=== PATIENT | female | born 1950 | race Caucasian/White ===

== ENCOUNTER 2017-04-10 11:26 | Outpatient (CLI) | payer MEDICARE ==
[2017-04-10 12:09] LABS: ALBUMIN/GLOBULIN RATIO 1.5 (1.0-2.2); BILIRUBIN,TOTAL 0.9 mg/dL (0.2-1.0); CALCIUM 9.1 mg/dL (8.5-10.3); CREATININE 0.7 mg/dL (0.4-1.0); POTASSIUM 3.9 mmol/L (3.5-5.0); TOTAL PROTEIN 7.1 g/dL (6.7-8.2)
== END 2017-04-10 11:27 | disposition home or self-care (01) ==
LOC: LAB 11:26
PROVIDERS: ATTEND Urology
DX: Z85.528 Personal history of other malignant neoplasm of kidney (principal); N39.0 Urinary tract infection, site not specified
CPT/HCPCS: 36415; 80053

== ENCOUNTER 2017-05-19 07:38 | Outpatient (CLI) | payer MEDICARE ==
--- NOTE | 2017-05-20 16:50 | Mammography Report ---
DIGITAL SCREENING MAMMOGRAM: 05/19/2017 CLINICAL INDICATION: A 67-year-old with history of benign biopsy, for screening. COMPARISON: 12/2014, 11/2013, 09/2012, 04/2011, 04/2010. TECHNIQUE: Routine CC and MLO projections were obtained of the breasts. FINDINGS: The breasts again demonstrate scattered fibroglandular densities bilaterally. Punctate, ty pically benign calcifications are present. No suspicious masses, clustered microcalcifications, or re gions of architectural distortion are identified. IMPRESSION: BENIGN FINDINGS. RECOMMENDATION: ROUTINE ANNUAL SCREENING UNLESS OTHERWISE CLINICALLY INDICATED. BIRADS CATEGORY 2-BENIGN FINDINGS. STANDARD QUALIFYING STATEMENTS 1. This examination was reviewed with the aid of Computer-Aided Detection (CAD). 2. A negative or benign imaging report should not delay biopsy if clinically suspicious findings are present. Consider surgical consultation if warranted. More than 5% of cancers are not identified by i maging. 3. Dense breasts may obscure an underlying neoplasm. JOB #: [id number] EXT JOB #:[id number]
== END 2017-05-19 07:39 | disposition home or self-care (01) ==
LOC: DI 07:38
PROVIDERS: ATTEND Family Medicine
DX: Z12.31 Encounter for screening mammogram for malignant neoplasm of breast (principal)
CPT/HCPCS: 77067

== ENCOUNTER 2017-12-10 08:00 | Outpatient (CLI) | payer MEDICARE ==
[2017-12-10 19:14] LABS: BASOPHILS % (AUTO) 0.5 %; EOSINOPHILS # (AUTO) 0.2 10^3/uL (0.0-0.7); EOSINOPHILS % (AUTO) 3.7 %; HGB - HEMOGLOBIN 11.5 g/dL (12.0-16.0); LYMPHOCYTES # (AUTO) 2.1 10^3/uL (1.5-3.5); LYMPHOCYTES % (AUTO) 32.6 %; MEAN CORPUSCULAR VOLUME 84.8 fL (81.0-99.0); MONOCYTES # (AUTO) 0.3 10^3/uL (0.0-1.0); MONOCYTES % (AUTO) 5.4 %; NEUTROPHILS # (AUTO) 3.7 10^3/uL (1.5-6.6); NEUTROPHILS % (AUTO) 57.8 %; PLT - PLATELET COUNT 283 10^3/uL (130-450); RED CELL DISTRIBUTION WIDTH 13.4 % (12.0-15.0); WHITE BLOOD COUNT 6.5 x10^3/uL (4.8-10.8)
[2017-12-10 19:22] LABS: % IRON SATURATION 18 % (20-50); ALBUMIN 3.9 g/dL (3.2-5.5); ALBUMIN/GLOBULIN RATIO 1.4 (1.0-2.2); ALKALINE PHOSPHATASE 50 IU/L (42-121); ALT ALANINE AMINOTRANSFERASE 13 IU/L (10-60); AST ASPARTATE AMINOTRANSFERASE 19 IU/L (10-42); BILIRUBIN,TOTAL 0.6 mg/dL (0.2-1.0); BUN - BLOOD UREA NITROGEN 16 mg/dL (6-20); CARBON DIOXIDE - CO2 29 mmol/L (21-32); CHLORIDE 106 mmol/L (101-111); CREATININE 0.7 mg/dL (0.4-1.0); GFR - MDRD 83 (>89); GLUCOSE 84 mg/dL (70-100); IRON 45 ug/dL (28-170); SODIUM 140 mmol/L (135-145); TOTAL IRON BINDING CAPACITY 248 ug/dL (250-450); TOTAL PROTEIN 6.6 g/dL (6.7-8.2); TRANSFERRIN 177 mg/dL (192-382)
[2017-12-10 19:29] LABS: THYROID STIMULATING HORMONE 2.35 uIU/mL (0.34-5.60)
[2017-12-10 19:35] LABS: FERRITIN 170.1 ng/mL (11.0-306.8)
== END 2017-12-10 08:01 | disposition home or self-care (01) ==
LOC: LAB.WCP 08:00
PROVIDERS: ATTEND Family Medicine
DX: L62 Nail disorders in diseases classified elsewhere (principal); L65.9 Nonscarring hair loss, unspecified; R42 Dizziness and giddiness; C64.9 Malignant neoplasm of unspecified kidney, except renal pelvis
CPT/HCPCS: 36415; 80053; 82607; 82728; 82746; 83540; 84443; 84466; 85025

== ENCOUNTER 2018-01-21 09:43 | Day surgery (SDC) | payer MEDICARE ==
[2018-01-21] MEDS ORDERED: LACTATED RINGERS 1,000 ML IV ONE ×2 (10:04→12:15)
[2018-01-21] MEDS ORDERED: fentaNYL 250 MCG/5 ML VIAL IVP ONE (10:58)
[2018-01-21] MEDS ORDERED: MIDAZOLAM 2 MG/2 ML VIAL IVP ONE (10:58)
[2018-01-21] MEDS ORDERED: LIDO GARGLE 30 ML BOTTLE ONE (10:59)
[2018-01-21] MEDS ORDERED: ONDANSETRON 4 MG/2 ML VIAL ONE (16:17)
[2018-01-21 16:32] VITALS: BP 113/70
--- NOTE | 2018-01-21 17:55 | XRAY Report ---
DOUBLE CONTRAST BARIUM ENEMA: 01/21/2018 HISTORY: Unsuccessful colonoscopy. FINDINGS: The preliminary advocacy director film shows multiple surgical clips in the abdomen. Bowel gas pattern is nonspecific. Minor degenerative change in the spine. Double contrast barium flows freely in a retrograde fashion from rectum to cecum. The colon is markedly redundant. No evidence of obstruction to retrograde flow or annular constricting lesion is identified. Unfortunately, due to the multiple overlapping colonic loops, it is impossible to clear the colon of small persistent intraluminal abnormalities. No large lesions are identified. Fluoroscopy Time: 5 minutes 26 seconds Number of Images: 15 IMPRESSION: 1. MARKEDLY REDUNDANT COLON. 2. NO OBSTRUCTION TO RETROGRADE FLOW OR ANNULAR CONSTRICTING LESION. 3. LIMITED EVALUATION OF THE COLON LUMEN DUE TO MULTIPLE OVERLAPPING LOOPS. TD: 01/21/2018 16:37 ANA
== END 2018-01-21 09:44 | disposition home or self-care (01) ==
LOC: SDS 09:43
PROVIDERS: ATTEND Internal Medicine Gastroenterology
PROC: 0DJD8ZZ Inspection of Lower Intestinal Tract, Via Natural or Artificial Opening Endoscopic (ICD-10-PCS; principal; 2018-01-21 10:45)
PROC: 0DB68ZX Excision of Stomach, Via Natural or Artificial Opening Endoscopic, Diagnostic (ICD-10-PCS; 2018-01-21 10:45)
DX: D50.9 Iron deficiency anemia, unspecified (principal); K57.30 Diverticulosis of large intestine without perforation or abscess without bleeding; D13.1 Benign neoplasm of stomach; Z85.528 Personal history of other malignant neoplasm of kidney
CPT/HCPCS: 43239; 45378; A9270; G0120; J7120; 88305

== ENCOUNTER 2018-03-15 11:00 | Outpatient (CLI) | payer MEDICARE ==
[2018-03-15 11:36] LABS: BASOPHILS # (AUTO) 0.1 10^3/uL (0.0-0.1); BASOPHILS % (AUTO) 1.2 %; EOSINOPHILS # (AUTO) 0.3 10^3/uL (0.0-0.7); EOSINOPHILS % (AUTO) 4.8 %; HGB - HEMOGLOBIN 13.1 g/dL (12.0-16.0); LYMPHOCYTES # (AUTO) 1.9 10^3/uL (1.5-3.5); LYMPHOCYTES % (AUTO) 32.6 %; MEAN CORPUSCULAR HEMOGLOBIN 28.9 pg (27.0-31.0); MEAN CORPUSCULAR HGB CONC 33.5 g/dL (32.0-36.0); MEAN CORPUSCULAR VOLUME 86.1 fL (81.0-99.0); MEAN PLATELET VOLUME 8.4 fL (7.9-10.8); MONOCYTES # (AUTO) 0.4 10^3/uL (0.0-1.0); MONOCYTES % (AUTO) 7.1 %; NEUTROPHILS # (AUTO) 3.2 10^3/uL (1.5-6.6); NEUTROPHILS % (AUTO) 54.3 %; PLT - PLATELET COUNT 254 10^3/uL (130-450); RED BLOOD COUNT 4.54 10^6/uL (4.20-5.40); RED CELL DISTRIBUTION WIDTH 13.5 % (12.0-15.0); WHITE BLOOD COUNT 5.8 x10^3/uL (4.8-10.8)
[2018-03-15 11:48] LABS: ALBUMIN 4.2 g/dL (3.2-5.5); ALBUMIN/GLOBULIN RATIO 1.5 (1.0-2.2); CALCIUM 9.6 mg/dL (8.5-10.3); CREATININE 0.6 mg/dL (0.4-1.0)
== END 2018-03-15 11:01 | disposition home or self-care (01) ==
LOC: LAB 11:00
PROVIDERS: ATTEND Internal Medicine Gastroenterology
DX: D50.9 Iron deficiency anemia, unspecified (principal); Z85.528 Personal history of other malignant neoplasm of kidney
CPT/HCPCS: 36415; 80053; 85025

== ENCOUNTER 2018-03-17 06:13 | Outpatient (CLI) | payer MEDICARE ==
[2018-03-17] MEDS ORDERED: IOPAMIDOL-300 50 ML VIAL ONE (06:35)
[2018-03-17] MEDS ORDERED: IOPAMIDOL-300 100 ML VIAL ONE (06:35)
[2018-03-17] MEDS ORDERED: IOPAMIDOL-300 50 ML VIAL PO ONE (07:36)
[2018-03-17] MEDS ORDERED: IOPAMIDOL-300 100 ML VIAL IVP ONE (07:36)
--- NOTE | 2018-03-17 09:22 | CT Report ---
Procedure Date: 03/17/2018 Accession Number: [id number] / [id number] Procedure: CT - Abdomen/Pelvis W/ CPT Code: FULL RESULT: EXAM: Abdomen/Pelvis W/ DATE: 03/17/2018 7:34 AM CLINICAL HISTORY: IRON DEFICIENCY ANEMIA, HISTORY OF RENAL CARCINOMA COMPARISON: None. TECHNIQUE: Routine helical CT imaging was performed through the abdomen and pelvis. IV contrast: 100 mL of Isovue 300. Enteric contrast: Yes. Reconstructions: Coronal and sagittal. In accordance with CT protocol optimization, one or more of the following dose reduction techniques were utilized for this exam: automated exposure control, adjustment of mA and/or KV based on patient size, or use of iterative reconstructive technique. FINDINGS: Lung Bases: Unremarkable aside from dependent changes at the right lung base. Liver: A 1.2 cm hypodense lesion in the caudate lobe is incompletely characterized on this study Gallbladder/Bile Ducts: Unremarkable. Spleen: Normal. Pancreas: Normal. Adrenal Glands: Normal. Left kidney: Postsurgical changes are seen near the renal hilum including surgical clips. Postsurgical changes including enhancement and calcification are seen along the anterior cortical outline of the left renal midpole. Exclusion of residual/recurrent disease at this site is not possible without comparison to a prior study. There is no overt nearby extrarenal mass or exophytic suspicious mass component. Right kidney: Right kidney is unremarkable. Peritoneal Cavity/Bowel: Normal. No free fluid, free air or adenopathy. No masses or acute inflammatory process. The appendix is well visualized and normal. Pelvic Organs: Normal. The bladder and visualized pelvic organs are within normal limits. Vasculature: No aneurysms or other significant abnormality. Bones: No aggressive osseous lesions. Other: None. IMPRESSION: Postsurgical changes in the left kidney. Without comparison to prior imaging, assessment of residual/recurrent disease at the resection site is not possible. Within these limitations, no overt metastatic disease and no exophytic mass lesion to suggest overt recurrence is identified. Incomplete characterization of 1.2 cm hypodense hepatic lesion. Dedicated MRI liver mass protocol with and without contrast is recommended. RADIA
== END 2018-03-17 06:14 | disposition home or self-care (01) ==
LOC: DI 06:13
PROVIDERS: ATTEND Internal Medicine Gastroenterology
DX: D50.9 Iron deficiency anemia, unspecified (principal); Z85.528 Personal history of other malignant neoplasm of kidney
CPT/HCPCS: 74177; Q9967

== ENCOUNTER 2018-04-03 13:39 | Outpatient (CLI) | payer MEDICARE ==
[2018-04-03] MEDS ORDERED: GADOBUTROL 7.5 MMOL/7.5 ML VIAL ONE (13:51)
--- NOTE | 2018-04-04 01:16 | MRI Report ---
Procedure Date: 04/03/2018 Accession Number: [id number] / [id number] Procedure: MRI - Abdomen W/WO CPT Code: FULL RESULT: EXAM: MR ABDOMEN WITH AND WITHOUT CONTRAST (MR LIVER) EXAM DATE: 04/03/2018 03:03 PM. CLINICAL HISTORY: History of renal cancer, indeterminate hepatic cyst. COMPARISON: ABDOMEN/PELVIS W/ 03/17/2018 7:28 AM. TECHNIQUE: Multiplanar breath-hold T1, T2, and DWI sequences obtained through the abdomen on an MR scanner. Images obtained before and after administration of 7.5 mL of Gadavist intravenous contrast. Multiphase postcontrast images obtained of the liver and abdomen. FINDINGS: Lung Bases: Unremarkable. Liver: There is a 1.3 x 1.1 cm cyst in the caudate lobe. The liver otherwise demonstrates homogeneous signal and enhancement with no suspicious lesions. There is no significant fatty infiltration. Gallbladder: The gallbladder is partially distended and appears normal with no wall thickening or stone. Pancreas: The pancreas appears normal with no mass or ductal dilatation. Spleen: The spleen appears normal. Kidneys and Adrenals: The kidneys appear normal with no mass or hydronephrosis. There are no cysts in the kidneys. The adrenals appear normal. Bowel: The small bowel and colon appear normal with no inflammation or obstruction. Retroperitoneum: The retroperitoneal structures appear normal with no mass or lymphadenopathy. IMPRESSION: 1. No evidence of renal mass. 2. Simple, 1.3 cm caudate lobe hepatic cyst. RADIA
== END 2018-04-03 13:40 | disposition home or self-care (01) ==
LOC: DI 13:39
PROVIDERS: ATTEND Family Medicine
DX: K76.89 Other specified diseases of liver (principal)
CPT/HCPCS: 74183; A9585

== ENCOUNTER 2019-03-10 06:58 | Day surgery (SDC) | payer MEDICARE ==
[~2019-03-10 06:58] MED LIST: CYCLOPENTOLATE 1% OPHTH DROPS 2 ML ONE; KETOROLAC 0.45% OPHTH DROPS ONE; PHENYLEPHRINE 2.5% OPHTH 2 ML DROPS ONE; PROPARACAINE 0.5% OPHTH DROPS 15 ML ONE
[2019-03-10] MEDS ORDERED: LACTATED RINGERS 500 ML IV ONE (07:02)
[2019-03-10] MEDS ORDERED: TRIAMCIN/MOXIFLOX OPHTHALMIC 0.6 ML VIAL IO ONE ×2 (07:05→08:15)
[2019-03-10] MEDS ORDERED: EPINEPHrine 1 MG/ML AMP ONE (07:05)
[2019-03-10] MEDS ORDERED: TIMOLOL 0.5% OPHTH DROPS ONE (07:05)
[2019-03-10] MEDS ORDERED: BRIMONIDINE 0.2% OPHTH DROPS 5 ML ONE (07:05)
[2019-03-10] MEDS ORDERED: BSS/LIDOCAINE/EPINEPHRINE 1 ML SYRINGE ONE (07:06)
[2019-03-10] MEDS ORDERED: VANCOMYCIN OPHTHALMI 8MG/0.8ML 8 MG/0.8 ML SYRINGE IO ONE ×2 (07:06→08:15)
[2019-03-10] MEDS ORDERED: PROPARACAINE 0.5% OPHTH DROPS 15 ML LEFTEYE ONE ×2 (07:15→08:17)
[2019-03-10] MEDS ORDERED: CYCLOPENTOLATE 1% OPHTH DROPS 2 ML LEFTEYE ONE (07:15)
[2019-03-10] MEDS ORDERED: PHENYLEPHRINE 2.5% OPHTH 2 ML DROPS LEFTEYE ONE (07:15)
[2019-03-10] MEDS ORDERED: KETOROLAC 0.45% OPHTH DROPS LEFTEYE ONE (07:15)
--- NOTE | 2019-03-10 07:41 | ANESTHESIA ---
Pre-Anesthesia VS, & Labs - Diagnosis Senile combined cataract left eye - Procedure cataract extraction with IOL left eye Vital Signs: Temp Pulse Resp BP Pulse Ox 36.4 C L 67 16 124/67 98 03/10/19 07:05 03/10/19 07:05 03/10/19 07:05 03/10/19 07:05 03/10/19 07:05 Height 5 ft 2 in Weight (kg) 64 kg Body Mass Index 28.3 - NPO >8 hours - Is Patient ?: No Home Medications and Allergies magnesium, iron, vitamin C, biotin Allergies/Adverse Reactions: Allergies Allergy/AdvReac Type Severity Reaction Status Date / Time amoxicillin Allergy Rash Verified 01/21/18 10:14 Sulfa (Sulfonamide Allergy Rash Verified 01/21/18 10:14 Antibiotics) Anes History & Medical History - Anesthetic History Anesthesia Complications: reports: Post-Operative Nausea/Vomiting - Medical History Cardiovascular: reports: None, Murmur Pulmonary: reports: None Gastrointestinal: reports: None Urinary: reports: Chronic bladder infection, Other (History of kidney cancer) Neuro: reports: None Musculoskeletal: reports: Osteoarthritis Endocrine/Autoimmune: reports: None Blood Disorders: reports: None Skin: reports: None Smoking Status: Former smoker Psychosocial: reports: No issues indicated - Surgical History General: Colonoscopy Gynecologic: Hysterectomy, Oophrectomy Other Past Surgical History: Patient had kidney tumor removed. Kidney is still intact Exam General: Alert, Oriented x3, Cooperative, No acute distress Dental: WNL (prominent incisors) Mouth Openin Fingerbreadth Neck Mobility: Normal Mallampati classification: II Thyromental Distance: greater than 6 cm Respiratory: Lungs clear, Normal breath sounds, No respiratory distress, No accessory muscle use Cardiovascular: Regular rate, Normal S1, Normal S2, No murmurs Mental/Cognitive Status: Alert/Oriented X3, Normal for patient Plan Anesthesia Type: MAC Consent for Procedure(s) Verified and Reviewed: Yes Code Status: Attempt Resuscitation ASA classification: 2-Mild systemic disease Is this case an emergency?: No
[2019-03-10] MEDS ORDERED: TIMOLOL 0.5% OPHTH DROPS OPTH ONE (08:16)
[2019-03-10] MEDS ORDERED: BRIMONIDINE 0.2% OPHTH DROPS 5 ML OPTH ONE (08:16)
[2019-03-10] MEDS ORDERED: BSS/LIDOCAINE/EPINEPHRINE 1 ML SYRINGE IO ONE (08:16)
[2019-03-10] MEDS ORDERED: EPINEPHrine 1 MG/ML AMP IR ONE (08:16)
[2019-03-10] MEDS ORDERED: CHONDR SULF/HYALURONATE SYRINGE IO ONE (08:16)
--- NOTE | 2019-03-10 08:45 | OPERATIVE REPORT ---
DATE OF SERVICE: 03/10/2019 Physician: Richie Yang MD PREOPERATIVE DIAGNOSIS: Visually significant cataract, left eye. This was her first cataract surger y. POSTOPERATIVE DIAGNOSIS: Visually significant cataract, left eye. This was her first cataract surge ry. DESCRIPTION OF PROCEDURE: Phacoemulsification with posterior chamber intraocular lens implant, left eye. SURGEON: Richie Yang MD ANESTHESIA: Monitored anesthesia care. COMPLICATIONS: None. OPERATIVE INDICATIONS: This is a 68-year-old woman with progressive vision loss in the left eye due to 2+ nuclear sclerotic and 3+ cortical cataract. Best corrected visual acuity was 20/20 with glare to 20/125 in the left eye. Indications for surgery are overall decrease in vision, difficulty drivin g in low light or at night, and difficulty with glare or bright lights in any situation. She was con sented at length concerning risks and benefits of cataract surgery, after which she expressed a arabella e to proceed with surgery. OPERATIVE PROCEDURE: The patient was taken into OR #3 and placed under monitored anesthesia care. A surgical timeout was conducted confirming correct patient, correct procedure, and correct surgical s ite. She was given topical anesthesia, and prepped and draped in the usual sterile fashion. The eye was entered at the 6 and 3 o'clock positions. Intracameral Shugarcaine was injected into the anteri or chamber, followed by Viscoat. A continuous-tear curvilinear capsulorrhexis was performed. The nu cleus was hydrodissected and phacoemulsified. The cortex was evacuated using automated infusion and aspiration. Provisc was injected in the capsular bag, and a 21.0 diopter intraocular lens inserted i n the bag. Approximately 0.8 mL of a mixture of triamcinolone, moxifloxacin and vancomycin was injec sam subconjunctivally in the superior quadrant for infection and inflammation prophylaxis. I and A, was used to evacuate the viscoelastic materials. The eye was inflated to physiologic pressure using balanced salt solution and found to be watertight. Patient was taken from the operating room in good condition and given postoperative instructions active. TD: 03/10/2019 08:29
[2019-03-10 09:07] VITALS: BP 106/54
== END 2019-03-10 06:59 | disposition home or self-care (01) ==
LOC: SDS 06:58
PROVIDERS: ATTEND Ophthalmology
PROC: 08RK3JZ Replacement of Left Lens with Synthetic Substitute, Percutaneous Approach (ICD-10-PCS; principal; 2019-03-10 08:00)
DX: H25.812 Combined forms of age-related cataract, left eye (principal); Z87.891 Personal history of nicotine dependence
CPT/HCPCS: 66984; A9270; J3490; V2632

== ENCOUNTER 2019-04-07 07:15 | Day surgery (SDC) | payer MEDICARE ==
[2019-04-07] MEDS ORDERED: LACTATED RINGERS 500 ML IV ONE (07:20)
[2019-04-07] MEDS ORDERED: BSS/LIDOCAINE/EPINEPHRINE 1 ML SYRINGE ONE (07:23)
[2019-04-07] MEDS ORDERED: EPINEPHrine 1 MG/ML AMP ONE (07:23)
[2019-04-07] MEDS ORDERED: TRIAMCIN/MOXIFLOX OPHTHALMIC 0.6 ML VIAL IO ONE ×2 (07:23→08:37)
[2019-04-07] MEDS ORDERED: VANCOMYCIN OPHTHALMI 8MG/0.8ML 8 MG/0.8 ML SYRINGE IO ONE ×2 (07:23→08:36)
[2019-04-07] MEDS ORDERED: BRIMONIDINE 0.2% OPHTH DROPS 5 ML ONE (07:23)
[2019-04-07] MEDS ORDERED: TIMOLOL 0.5% OPHTH DROPS ONE (07:23)
[2019-04-07] MEDS ORDERED: PROPARACAINE 0.5% OPHTH DROPS 15 ML RIGHTEYE ONE ×2 (07:33→08:36)
[2019-04-07] MEDS ORDERED: KETOROLAC 0.45% OPHTH DROPS RIGHTEYE ONE (07:33)
[2019-04-07] MEDS ORDERED: CYCLOPENTOLATE 1% OPHTH DROPS 2 ML RIGHTEYE ONE (07:33)
[2019-04-07] MEDS ORDERED: PHENYLEPHRINE 2.5% OPHTH 2 ML DROPS RIGHTEYE ONE (07:34)
--- NOTE | 2019-04-07 07:58 | ANESTHESIA ---
Pre-Anesthesia VS, & Labs - Diagnosis Right senile combined cataract - Procedure Right phaco with IOL implant Vital Signs: Temp Pulse Resp BP Pulse Ox 36.6 C 69 16 115/64 97 04/07/19 07:24 04/07/19 07:24 04/07/19 07:24 04/07/19 07:24 04/07/19 07:24 Height 5 ft 2 in Weight (kg) 63 kg Body Mass Index 28.3 - NPO Other (Sip water at 0600) - Is Patient ?: No - Lab Results Lab results reviewed: No Home Medications and Allergies Allergies/Adverse Reactions: Allergies Allergy/AdvReac Type Severity Reaction Status Date / Time adhesive tape Allergy Severe Rash Verified 04/07/19 07:37 amoxicillin Allergy Rash Verified 01/21/18 10:14 Sulfa (Sulfonamide Allergy Rash Verified 01/21/18 10:14 Antibiotics) Anes History & Medical History - Anesthetic History Anesthesia Complications: reports: Other-see comment (Post op N/V with GETA) Family history of Anesthesia Complications: Denies Family history of Malignant Hyperthermia: Denies - Medical History Cardiovascular: reports: None, Murmur Pulmonary: reports: None Gastrointestinal: reports: None Urinary: reports: Chronic bladder infection, Other (Hx left partial nephrectomy for kidney cancer) Neuro: reports: None Musculoskeletal: reports: Osteoarthritis Endocrine/Autoimmune: reports: None Blood Disorders: reports: None Skin: reports: None Smoking Status: Former smoker Psychosocial: reports: No issues indicated - Surgical History General: Colonoscopy Urologic: Nephrectomy Gynecologic: Hysterectomy, Oophrectomy Exam General: Alert, Oriented x3, Cooperative Mouth Opening: Greater than 4 Fingerbreadths Neck Mobility: Normal Mallampati classification: II Respiratory: Lungs clear Cardiovascular: Regular rate Mental/Cognitive Status: Alert/Oriented X3, Normal for patient Cognitive Status: Within normal limits Plan Anesthesia Type: MAC Consent for Procedure(s) Verified and Reviewed: Yes Code Status: Attempt Resuscitation ASA classification: 2-Mild systemic disease Is this case an emergency?: No
[2019-04-07] MEDS ORDERED: MIDAZOLAM 2 MG/2 ML VIAL IVP ONE (08:28)
[2019-04-07] MEDS ORDERED: BRIMONIDINE 0.2% OPHTH DROPS 5 ML OPTH ONE (08:35)
[2019-04-07] MEDS ORDERED: EPINEPHrine 1 MG/ML AMP IVP ONE (08:35)
[2019-04-07] MEDS ORDERED: TIMOLOL 0.5% OPHTH DROPS OPTH ONE (08:35)
[2019-04-07] MEDS ORDERED: CHONDR SULF/HYALURONATE SYRINGE IO ONE (08:35)
[2019-04-07] MEDS ORDERED: BSS/LIDOCAINE/EPINEPHRINE 1 ML SYRINGE IO ONE (08:36)
--- NOTE | 2019-04-07 09:06 | OPERATIVE REPORT ---
DATE OF SERVICE: 04/07/2019 Physician: Richie Yang MD PREOPERATIVE DIAGNOSIS: Visually significant cataract, right eye. Cataract surgery was performed on the left eye on 03/10/2019. POSTOPERATIVE DIAGNOSIS: Visually significant cataract, right eye. Cataract surgery was performed o n the left eye on 03/10/2019. PROCEDURE: Phacoemulsification with posterior chamber intraocular lens implant, right eye. SURGEON: Richie Yang MD ANESTHESIA: Monitored anesthesia care. COMPLICATIONS: None. OPERATIVE INDICATIONS: This is a 68-year-old woman with progressive vision loss in the right eye due to 2+ nuclear sclerotic and 2-3+ cortical cataract. Best corrected visual acuity was 20/20 with gla re to 20/100 in the right eye. Indications for surgery were difficulty driving at night because of h eadlights from other vehicles, and difficulty with glare or bright lights in any situation. She was consented at length concerning risks and benefits of cataract surgery, after which she expressed a de sire to proceed with surgery. OPERATIVE PROCEDURE: The patient was taken to OR #3 and placed under monitored anesthesia care. A s urgical timeout was conducted confirming correct patient, correct procedure, and correct surgical sit e. She was given topical anesthesia, and prepped and draped in the usual sterile fashion. The eye w as entered at the 12 and 9 o'clock positions. Intracameral Shugarcaine was injected into the anterio r chamber, followed by Viscoat. A continuous-tear curvilinear capsulorrhexis was performed. The nuc leus was hydrodissected and phacoemulsified. The cortex was evacuated using automated infusion and a spiration. Provisc was injected in the capsular bag, and a 20.0 diopter intraocular lens inserted in the bag. Approximately 0.8 mL of a mixture of triamcinolone, moxifloxacin and vancomycin was inject ed subconjunctivally in the superior quadrant for infection and inflammation prophylaxis. I and A wa s used to evacuate the viscoelastic materials. The eye was inflated to physiologic pressure using ba lanced salt solution and found to be watertight. The patient was taken from the operating room in go od condition and given postoperative instructions. TD: 04/07/2019 08:55
[2019-04-07 09:07] VITALS: BP 113/62
== END 2019-04-07 07:16 | disposition home or self-care (01) ==
LOC: SDS 07:15
PROVIDERS: ATTEND Ophthalmology
PROC: 08RJ3JZ Replacement of Right Lens with Synthetic Substitute, Percutaneous Approach (ICD-10-PCS; principal; 2019-04-07 08:30)
DX: H25.811 Combined forms of age-related cataract, right eye (principal); Z98.42 Cataract extraction status, left eye; Z87.891 Personal history of nicotine dependence; Z90.5 Acquired absence of kidney; Z85.528 Personal history of other malignant neoplasm of kidney
CPT/HCPCS: 66984; A9270; J3490; V2632

== ENCOUNTER 2020-05-01 11:18 | Outpatient (CLI) | payer MEDICARE ==
--- NOTE | 2020-05-01 14:56 | Ultrasound Report ---
PROCEDURE: Retroperitoneal INDICATIONS: HX OF RENAL CELL CANCER TECHNIQUE: Real-time scanning was performed of the retroperitoneal organs, with image documentation. COMPARISON: None. FINDINGS: CT abdomen pelvis 03/17/2018 Kidneys: Kidneys are normal in size. Right kidney measures 9.9 cm long; left kidney measures 10.2 c m long. Right renal cortical thickness is 1.1 cm; left renal cortical thickness is 1.1 cm. No solid masses, hydronephrosis, or nephrolithiasis. Urinary bladder: Prevoid bladder volume is 103 cc. Small postvoid residual of 18 cc. Bilateral ureter al jets are identified. No bladder mass or debris. Miscellaneous: No free abdominal fluid. IMPRESSION: 1. Normal sonographic morphology of both kidneys. 2. Normal urinary bladder morphology with a small postvoid residual. Reviewed by: Cheri Saab MD on 05/01/2020 2:55 PM PDT Approved by: Cheri Saab MD on 05/01/2020 2:55 PM PDT Station ID: [id number]
== END 2020-05-01 11:19 | disposition home or self-care (01) ==
LOC: DI 11:18
PROVIDERS: ATTEND Urology
DX: Z85.528 Personal history of other malignant neoplasm of kidney (principal)
CPT/HCPCS: 76770

== ENCOUNTER 2020-05-06 13:44 | Outpatient (CLI) | payer MEDICARE ==
--- NOTE | 2020-05-09 08:15 | Mammography Report ---
BILATERAL DIGITAL SCREENING MAMMOGRAM 3D/2D: 05/06/2020 CLINICAL: Routine screening. Comparison is made to exams dated: 05/19/2017 mammogram, 01/10/2015 mammogram, and 12/01/2013 mammogram - [facility]. There are scattered fibroglandular elements in both breasts. No significant masses, calcifications, or other findings are seen in either breast. There has been no significant interval change. IMPRESSION: NEGATIVE There is no mammographic evidence of malignancy. A 1 year screening mammogram is recommended. This exam was interpreted at Station ID: [id number]. NOTE: For mammograms, a report in lay terms will be sent to the patient. Approximately 15% of breast malignancies will not be visualized mammographically. In the management of a palpable breast mass, a negative mammogram must not discourage biopsy of a clinically suspicious lesion. Electronically Signed By: Onel Conde M.D. slc/:05/07/2020 17:06:04 ACR BI-RADS Category 1: Negative 3341F PARENCHYMAL PATTERN: (A) - The breast(s) demonstrate(s) scattered fibroglandular densities. BI-RADS CATEGORY: (1) - 1 RECOMMENDATION: (ANNUAL) - Recommend routine annual screening mammography. [id number] 1 year screening LATERALITY: (B)
== END 2020-05-06 13:45 | disposition home or self-care (01) ==
LOC: DI 13:44
DX: Z12.31 Encounter for screening mammogram for malignant neoplasm of breast (principal)
CPT/HCPCS: 77063; 77067

== ENCOUNTER 2020-05-23 11:33 | Outpatient (CLI) | payer MEDICARE ==
[2020-05-23 11:56] LABS: ALBUMIN/GLOBULIN RATIO 1.4 (1.0-2.2); BILIRUBIN,TOTAL 1.2 mg/dL (0.2-1.0); CALCIUM 8.8 mg/dL (8.5-10.3); CREATININE 0.7 mg/dL (0.4-1.0); TOTAL PROTEIN 6.8 g/dL (6.7-8.2)
== END 2020-05-23 11:34 | disposition home or self-care (01) ==
LOC: LAB 11:33
PROVIDERS: ATTEND Urology
DX: Z85.528 Personal history of other malignant neoplasm of kidney (principal)
CPT/HCPCS: 36415; 80053

== ENCOUNTER 2021-05-12 12:42 | Outpatient (CLI) | payer MEDICARE | END 2021-05-12 23:59 | disposition home or self-care (01) | LOC: LAB.N 12:42 | PROVIDERS: ATTEND Family Medicine | DX: R39.9 Unspecified symptoms and signs involving the genitourinary system (principal) | CPT/HCPCS: 87077; 87086; 87181 ==

== ENCOUNTER 2021-05-20 08:00 | Outpatient (CLI) | payer MEDICARE ==
[2021-05-20 20:43] LABS: BACTERIAL VAGINOSIS DNA NEGATIVE (NEGATIVE); CANDIDA GLABRATA DNA NEGATIVE (NEGATIVE); CANDIDA GROUP DNA NEGATIVE (NEGATIVE); CANDIDA KRUSEI DNA NEGATIVE (NEGATIVE); TRICHOMONAS VAGINALIS DNA NEGATIVE (NEGATIVE)
[2021-05-20 21:50] LABS: CHLAMYDIA TRACHOMATIS DNA NEGATIVE (NEGATIVE); NEISSERIA GONORRHOEAE DNA NEGATIVE (NEGATIVE); TRICHOMONAS VAGINALIS DNA NEGATIVE (NEGATIVE)
== END 2021-05-20 23:59 | disposition home or self-care (01) ==
LOC: LAB.N 08:00
PROVIDERS: ATTEND Family Medicine
DX: R39.9 Unspecified symptoms and signs involving the genitourinary system (principal)
CPT/HCPCS: 87077; 87086; 87181; 87491; 87591; 87661; 87801

== ENCOUNTER 2021-05-20 08:00 | Outpatient (CLI) | payer MEDICARE | END 2021-05-20 23:59 | LOC: LAB.N 08:00 | PROVIDERS: ATTEND Family Medicine | DX: R39.9 Unspecified symptoms and signs involving the genitourinary system (principal) | CPT/HCPCS: 87086 ==

== ENCOUNTER 2021-07-25 18:51 | Outpatient (CLI) | payer MEDICARE ==
--- NOTE | 2021-07-26 10:34 | Ultrasound Report ---
PROCEDURE: Retroperitoneal INDICATIONS: HIST OF RENAL CELL CARCINOMA TECHNIQUE: Real-time scanning was performed of the retroperitoneal organs, with image documentation. COMPARISON: Retroperitoneal ultrasound 05/01/2020, MR abdomen 04/03/2018. FINDINGS: Kidneys: Right kidney measures 9.9 cm long; left kidney measures 10.2 cm long. Right renal cortical thickness is 1.2 cm; left renal cortical thickness is 1.2 cm. No discrete solid mass identified. No hydronephrosis. No shadowing renal stones. Bladder: Initial bladder volume measures 366 mL. There is a postvoid residual volume of 83 mL. Bilate ral ureteral jets are demonstrated. No discrete bladder mass identified. IMPRESSION: 1. No discrete renal mass identified sonographically. 2. Postvoid residual volume of 83 mL in the bladder. Reviewed by: Blake Gonzales MD on 07/26/2021 9:32 AM [facility] Approved by: Blake Gonzales MD on 07/26/2021 9:32 AM [facility] Station ID: [id number]
== END 2021-07-25 18:52 | disposition home or self-care (01) ==
LOC: DI 18:51
PROVIDERS: ATTEND Urology
DX: Z85.528 Personal history of other malignant neoplasm of kidney (principal)

== ENCOUNTER 2021-08-09 08:00 | Outpatient (CLI) | payer MEDICARE | END 2021-08-09 23:59 | LOC: LAB.N 08:00 | PROVIDERS: ATTEND Physician Assistant | DX: R30.0 Dysuria (principal) | CPT/HCPCS: 87077; 87086; 87181 ==

== ENCOUNTER 2022-12-05 08:00 | Outpatient (CLI) | payer MEDICARE | END 2022-12-05 23:59 | disposition home or self-care (01) | LOC: LAB.N 08:00 | PROVIDERS: ATTEND Family Medicine | DX: N39.0 Urinary tract infection, site not specified (principal) | CPT/HCPCS: 87077; 87086; 87181 ==

== ENCOUNTER 2022-12-09 15:02 | Outpatient (CLI) | payer MEDICARE ==
--- NOTE | 2022-12-09 18:44 | Ultrasound Report ---
PROCEDURE: Retroperitoneal INDICATIONS: RENAL CELL CARCINOMA TECHNIQUE: Real-time scanning was performed of the retroperitoneal organs, with image documentation. COMPARISON: None. FINDINGS: The right kidney measures 9 cm. The left kidney measures 10.5 cm. Normal cortical thickness is. Mild dilation of the right renal pelvis and proximal ureter, measuring up to 1.2 cm. The bladder measures 260 cc prevoid with both ureteral jets visualized. Postvoid volume is 23 cc. IMPRESSION: Mild right renal pelvis and proximal ureter dilation. Postvoid volume is 23 cc. Both ureteric jets ar e visualized. Reviewed by: Reilly Oakley MD on 12/09/2022 6:43 PM PDT Approved by: Reilly Oakley MD on 12/09/2022 6:43 PM PDT Station ID: [id number]
== END 2022-12-09 15:03 | disposition home or self-care (01) ==
LOC: DI 15:02
PROVIDERS: ATTEND Urology
DX: Z90.5 Acquired absence of kidney (principal); Z85.528 Personal history of other malignant neoplasm of kidney

== ENCOUNTER 2023-01-01 14:47 | Outpatient (CLI) | payer MEDICARE ==
[2023-01-01] MEDS ORDERED: iohexoL-300 100 ML VIAL ONE (14:55)
[2023-01-01 15:04] LABS: BASOPHILS % (AUTO) 0.4 %; EOSINOPHILS # (AUTO) 0.3 10^3/uL (0.0-0.7); EOSINOPHILS % (AUTO) 3.4 %; HCT - HEMATOCRIT 40.5 % (37.0-47.0); LYMPHOCYTES # (AUTO) 2.1 10^3/uL (1.5-3.5); LYMPHOCYTES % (AUTO) 27.5 %; MEAN CORPUSCULAR HEMOGLOBIN 28.1 pg (27.0-31.0); MEAN CORPUSCULAR HGB CONC 32.1 g/dL (32.0-36.0); MEAN CORPUSCULAR VOLUME 87.7 fL (81.0-99.0); MEAN PLATELET VOLUME 10.4 fL (7.9-10.8); MONOCYTES # (AUTO) 0.4 10^3/uL (0.0-1.0); MONOCYTES % (AUTO) 5.5 %; NEUTROPHILS # (AUTO) 4.9 10^3/uL (1.5-6.6); NEUTROPHILS % (AUTO) 63.1 %; PLT - PLATELET COUNT 296 10^3/uL (130-450); RED BLOOD COUNT 4.62 10^6/uL (4.20-5.40); RED CELL DISTRIBUTION WIDTH 12.9 % (12.0-15.0); WHITE BLOOD COUNT 7.7 x10^3/uL (4.8-10.8)
[2023-01-01 15:24] LABS: ALBUMIN 4.1 g/dL (3.2-5.5); ALBUMIN/GLOBULIN RATIO 1.5 (1.0-2.2); ALKALINE PHOSPHATASE 68 IU/L (42-121); ALT ALANINE AMINOTRANSFERASE 14 IU/L (10-60); AST ASPARTATE AMINOTRANSFERASE 16 IU/L (10-42); BILIRUBIN,TOTAL 0.8 mg/dL (0.2-1.0); BUN - BLOOD UREA NITROGEN 14 mg/dL (6-20); CALCIUM 8.8 mg/dL (8.5-10.3); CARBON DIOXIDE - CO2 29 mmol/L (21-32); CHLORIDE 105 mmol/L (101-111); CHOLESTEROL 196 mg/dL; CREATININE 0.7 mg/dL (0.4-1.0); GFR - MDRD 82 (>89); GLUCOSE 105 mg/dL (70-100); HDL CHOLESTEROL 66 mg/dL; LDL CHOLESTEROL,CALCULATED 67 mg/dL; POTASSIUM 3.3 mmol/L (3.5-5.0); SODIUM 141 mmol/L (135-145); TOTAL PROTEIN 6.9 g/dL (6.7-8.2); TRIGLYCERIDES 315 mg/dL; VLDL CHOLESTEROL 63 mg/dL
[2023-01-01 15:32] LABS: THYROID STIMULATING HORMONE 3.01 uIU/mL (0.34-5.60)
[2023-01-01] MEDS ORDERED: iohexoL-300 100 ML VIAL IVP ONE (15:50)
--- NOTE | 2023-01-01 16:42 | CT Report ---
PROCEDURE: IVP INDICATIONS: HYDRONEPHROSIS CONTRAST: 140mL Omni 300 TECHNIQUE: After the administration of intravenous contrast, 5 mm thick sections acquired from the diaphragms to the symphysis. 5 mm thick coronal and sagittal reformats were acquired. For radiation dose reducti on, the following was used: automated exposure control, adjustment of mA and/or kV according to luba ent size. COMPARISON: None. FINDINGS: Image quality: Excellent. Urinary system: Both kidneys are normal in size. No hydronephrosis or nephrolithiasis on pre-contras t images. No solid masses or complex cysts which require follow up. The opacified renal calyces and ureters appear normal, without filling defect. Bladder wall thickness is normal, accounting for unde rdistention. No calcified bladder stones. No filling defect within the opacified bladder. OTHER Lung bases and heart: Unremarkable. Liver: No solid mass. Benign hepatic cyst in the caudate lobe. Gallbladder and biliary tree: No radiopaque stones or wall thickening. No biliary dilation. Spleen: No splenomegaly. Pancreas: No pancreatic ductal dilation. Adrenals: No adrenal nodule. Bowel and peritoneum: No bowel distension. No pathologic free fluid. Abdominal Lymph nodes: No central or retroperitoneal adenopathy. Vessels: Unremarkable. Reproductive organs: 2.2 cm right perirectal cystic lesion without internal complexity (series 8, drew ge [id number]). Pelvic Lymph nodes: Unremarkable. Bones: No aggressive osseous abnormality. Other: Small, fat-containing periumbilical hernia. IMPRESSION: No filling defect within the renal systems or ureters. No nephrolithiasis. 2.2 cm right perirectal cystic lesion without internal complexity. Findings could represent an ovaria n cyst, lymphocele or duplication cyst. Consider MRI for further evaluation, as this would be challen ging to visualize with ultrasound. Reviewed by: Ottoniel Mills on 01/01/2023 4:41 PM PDT Approved by: Ottoniel Mills on 01/01/2023 4:41 PM PDT Station ID: [id number]
== END 2023-01-01 14:48 | disposition home or self-care (01) ==
LOC: LAB 14:47
PROVIDERS: ATTEND Urology
DX: N13.30 Unspecified hydronephrosis (principal); C64.9 Malignant neoplasm of unspecified kidney, except renal pelvis; N30.90 Cystitis, unspecified without hematuria; Z90.5 Acquired absence of kidney; R93.5 Abnormal findings on diagnostic imaging of other abdominal regions, including retroperitoneum
CPT/HCPCS: 36415; 74178; 80053; 80061; 84443; 85025; Q9967; 83721; 84520